=== PATIENT | male | born 1995 | race Caucasian/White ===

== ENCOUNTER 2024-01-03 12:54 | Outpatient (CLI) | payer BC, SELFPAY ==
--- NOTE | ~2024-01-03 | MR_ITS ---
EXAMINATION: MR shoulder RT w con DATE: 01/03/2024 14:46 INDICATION: right glenoid labrum TECHNIQUE: Magnetic resonance imaging (MRI) of the right shoulder was performed following intra-maurice cular gadolinium contrast injection and without intravenous contrast. Details of the glenohumeral janeen nt injection have been dictated separately. Sequences included axial T2-weighted FS FSE, axial T1-we ighted FS FSE, coronal oblique T1-weighted FS FSE, coronal oblique T2-weighted FSE, sagittal T2-weigh bekah FS FSE, sagittal T1-weighted FSE, and ABER (abduction external rotation) T1-weighted FS FSE. COMPARISON: None. FINDINGS: Coracoacromial arch: The acromion undersurface is curved in morphology (type II). The coracoacromial ligament is normal. A cromioclavicular joint is normal. Bones and other: There is a likely subacute minimally displaced avulsion fracture which extends 2 cm AP along the supe rior facet of the greater tuberosity with surrounding marrow edema but no evident extension of the in tra-articular contrast along the fracture plane suggesting the fracture is healing. Otherwise normal marrow signal with no other fractures or pathologic marrow replacing process. No abnormal fluid signa l in the subacromial/subdeltoid bursa to suggest bursitis. Rotator cuff: Mild supraspinatus tendinopathy with very small articular sided tear near of the posterior supraspina tus tendon involving no greater than one third of the tendon thickness which is best appreciated on t he ABER images. This occurs near the intersection of the footplate of the tendon and the posterior m argin of the greater tuberosity fracture. The infraspinatus, teres minor and subscapularis tendons ar e normal. Normal rotator cuff muscle bulk and signal. Biceps tendon, glenoid labrum and glenohumeral cartilage: Long head of the biceps tendon is normal. There is a tear at the base of the superior to posterior gl enoid labrum. The tear originates anteriorly at the 1:00 position where there is a likely normal subl abral foramen. The tear extends posteriorly and inferiorly to the 8:30 position of the posterior labr um. The tear also extends peripherally is a partial tear of the glenoid side of the superior glenohum eral ligament. Articular cartilage is normal. IMPRESSION: 1. Likely subacute healing minimally displaced avulsion fracture of the superior facet of the greater tuberosity with likely associated mild partial tear along the articular side of the posterior supras pinatus tendon. 2. SLAP tear of the superior to posterior glenoid labrum with associated partial tear of the glenoid side of the superior glenohumeral ligament. Reviewed, dictated and finalized at location A. IMPRESSION: 1. Likely subacute healing minimally displaced avulsion fracture of the superio r facet of the greater tuberosity with likely associated mild partial tear chata g the articular side of the posterior supraspinatus tendon. 2. SLAP tear of the superior to posterior glenoid labrum with associated partia l tear of the glenoid side of the superior glenohumeral ligament.
--- NOTE | ~2024-01-03 | XR_ITS ---
EXAMINATION: XR fl inj shoulder RT - MR/CT DATE: 01/03/2024 14:05 INDICATION: Right glenoid labral tear presenting with TECHNIQUE: A time-out was performed to verify the patient's name, date of , and procedure to b e performed. The procedure including the risks, benefits, and alternatives was discussed with the pat ient. Risks discussed included bleeding and infection. The patient understood the risks and agreed to proceed. The skin overlying the rotator cuff interval of the right glenohumeral joint was prepped a nd draped in usual sterile fashion. Anesthetic was administered with 1% lidocaine subcutaneously. A 22 G needle was advanced under fluoroscopic guidance into the joint. Injection of 1 mL of Omnipaque 240 confirmed intra-articular position of the needle. Subsequently, injectate consisting of 12 mL o f 2:1:1 mixture of sterile saline:Omnipaque 240:1% lidocaine mixed 200:1 with 529 mg/mL Multihance ga dolinium contrast was instilled with intra-articular administration confirmed with intermittent fluo roscopy. The needle was removed and the entry site was cleaned and dressed. There were no immediate complications. Fluoroscopy exposure time was 0.2 minutes. The total number of images was 124. Total D AP was 0.658 Gycm^2 FINDINGS: Real-time fluoroscopy demonstrates the needle and injected contrast in the right glenohumer al joint for subsequent MRI arthrogram which will be dictated separately. IMPRESSION: 1. Successful right glenohumeral joint injection of a dilute gadolinium contrast mixture for subseque nt MRI arthrogram which will be dictated separately.. Reviewed, dictated and finalized at location A. IMPRESSION: 1. Successful right glenohumeral joint injection of a dilute gadolinium contras t mixture for subsequent MRI arthrogram which will be dictated separately..
== END 2024-01-03 12:55 | disposition home or self-care (01) ==
PROVIDERS: Visit Provider Physician Assistant
DX: S43.431A Superior glenoid labrum lesion of right shoulder, initial encounter (principal); S46.011A Strain of muscle(s) and tendon(s) of the rotator cuff of right shoulder, initial encounter; X58.XXXA Exposure to other specified factors, initial encounter
CPT/HCPCS: 23350; 73222; 77002; A9577; Q9966